=== PATIENT | female | born 1955 | race Caucasian/White ===

== ENCOUNTER 2018-02-08 08:18 | Outpatient (CLI) | payer BC | END 2018-02-08 08:19 | disposition home or self-care (01) | LOC: BICMAMMO 08:18 | PROVIDERS: ATTEND Family Medicine | DX: Z12.31 Encounter for screening mammogram for malignant neoplasm of breast (principal) | CPT/HCPCS: 77063; 77067 ==

== ENCOUNTER 2018-05-24 08:39 | Outpatient (CLI) | payer BC ==
--- NOTE | 2018-05-24 11:11 | MRI ---
MRI LEFT KNEE: 05/24/2018 PROVIDED CLINICAL HISTORY: Left knee pain. FINDINGS: The anterior cruciate ligament, posterior cruciate ligament, medial collateral ligament, and lateral collateral ligamentous complex demonstrate an intact MR appearance, as does the extensor mechanism. There is a displaced bucket-handle tear of the lateral meniscus, with displacement of meniscal tissue into the intercondylar region of the knee. The medial meniscus demonstrates no definite evidence fo r tear. There are conspicuous foci of full-thickness articular cartilage loss involving both medial and later al femorotibial joints. Articular cartilage thinning and articular cartilage irregularity involves t he patellar articular cartilage. Numerous intraarticular bodies are present, the largest of which is located within the lateral aspect of the suprapatellar bursa, measuring about 17-18 mm. There is a moderate knee joint effusion with Molina's cyst formation. There is semimembranosis tendin osis. Intraarticular bodies are noted within the popliteus hiatus. No focal concerning regional marrow or muscular signal abnormality is evident. IMPRESSION: 1. Displaced bucket-handle tear of the lateral meniscus. 2. 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 3. Moderate knee joint effusion with Molina's cyst formation. POS: [facility]
== END 2018-05-24 08:40 | disposition home or self-care (01) ==
LOC: BICMRI 08:39
PROVIDERS: ATTEND Orthopaedic Surgery
DX: S83.242A Other tear of medial meniscus, current injury, left knee, initial encounter (principal); S83.252A Bucket-handle tear of lateral meniscus, current injury, left knee, initial encounter; M25.462 Effusion, left knee; M71.22 Synovial cyst of popliteal space [Baker], left knee

== ENCOUNTER 2018-06-27 16:34 | Outpatient (CLI) | payer BC ==
[2018-06-27 17:11] LABS: #Basophils 0.1 thou/uL (0.0-0.2); #Eosinphils 0.3 thou/uL (0.0-0.7); #Lymphocytes 1.9 thou/uL (1.20-3.40); #Monocytes 0.7 thou/uL (0.11-0.59); #Neutrophils 3.8 thou/uL (1.40-6.50); %Basophils 1.4 % (0.0-1.0); %Eosinophils 4.1 % (0.0-10.0); %Monocytes 10.5 % (0.0-10.0); Hemoglobin 13.3 g/dL (12.0-16.0); Mean Corpuscular HGB CONC 33.2 g/dL (32.0-36.0); Mean Corpuscular Hemoglobin 31.9 pg (27.0-31.0); Mean Corpuscular Volume 96.1 fL (78.0-98.0); Mean Platelet Volume 6.9 fL (7.4-10.4); Platelet Count 314 thou/uL (130-400); RBC Distribution Width 11.3 % (11.5-14.5); Red Blood Cell (RBC) Count 4.16 mill/uL (4.20-5.40); White Blood Cell (WBC) Count 6.8 thou/uL (4.8-10.8)
[2018-06-27 17:27] LABS: Anion Gap 11 mmol/L (10-20); BUN (Urea Nitrogen) 22 mg/dL (9.8-20.1); Calc. Creatinine Clearance 0 mL/min (70-130); Calcium 9.3 mg/dL (7.8-10.44); Carbon Dioxide 28 mmol/L (23-31); Chloride 101 mmol/L (98-107); Estimated GFR-MDRD 67; Glucose 78 mg/dL (80-115); Potassium 3.4 mmol/L (3.5-5.1); Sodium 137 mmol/L (136-145)
--- NOTE | 2018-06-28 14:30 | EKG ---
Test Reason : Blood Pressure : / mmHG Vent. Rate : 054 BPM Atrial Rate : 054 BPM P-R Int : 158 ms QRS Dur : 086 ms QT Int : 422 ms P-R-T Axes : -19 -19 -09 degrees QTc Int : 400 ms Sinus bradycardia Inferior infarct , age undetermined Cannot rule out Anterior infarct , age undetermined Abnormal ECG No previous ECGs available Confirmed by LUCILA NEUMANN, DR. Banda ([id number]) on 06/28/2018 2:29:53 PM Referred By: KIMBERLI Confirmed By:DR. Veronika GAYTAN MD
== END 2018-06-27 16:35 | disposition home or self-care (01) ==
LOC: LABBT 16:34
PROVIDERS: ATTEND Orthopaedic Surgery
DX: Z01.818 Encounter for other preprocedural examination (principal); S83.282A Other tear of lateral meniscus, current injury, left knee, initial encounter
CPT/HCPCS: 80048; 85025; 93005; 93010

== ENCOUNTER 2018-06-29 05:59 | Day surgery (SDC) | payer BC ==
[2018-06-27 16:48] VITALS: BMI 24.7
[2018-06-29] MEDS ORDERED: CEFAZOLIN 2 GM/50 ML BAG ONE (06:23)
[2018-06-29] MEDS ORDERED: PROPOFOL 20 ML ONE (06:24)
[2018-06-29] MEDS ORDERED: Fentanyl 100 MCG/2 ML VIAL ONE ×2 (06:54→08:40)
[2018-06-29] MEDS ORDERED: Bupivacaine HCl 0.5%/Epinephrine 1:200,000/PF 30 ml Vial ONE (10:58)
[2018-06-29] MEDS ORDERED: Lidocaine 2% w/Epinephrine 1:200K 20 ML VIAL ONE (10:58)
[2018-06-29] MEDS ORDERED: Lidocaine 1% PF 5 ML VIAL ONE (15:59)
[2018-06-29] MEDS ORDERED: PROPOFOL 200 MG/20 ML VIAL ONE (15:59)
[2018-06-29] MEDS ORDERED: ePHEDrine/0.9% NaCl/PF SYRINGE 50 mg/10 ml ONE (15:59)
[2018-06-29] MEDS ORDERED: Ketorolac Tromethamine 30 MG/ML VIAL ONE (15:59)
[2018-06-29] MEDS ORDERED: Dexamethasone 20 MG/5 ML VIAL ONE (15:59)
[2018-06-29] MEDS ORDERED: Ondansetron PF 4 MG/2 ML Vial ONE (15:59)
--- NOTE | 2018-07-02 08:23 | OP ---
DATE OF PROCEDURE: 06/29/2018 PREOPERATIVE DIAGNOSIS: Bucket handle lateral meniscus tear. POSTOPERATIVE DIAGNOSES: Bucket handle lateral meniscus tear, and 5 large loose bodies, which were removed. The loose body removal took over 20 minutes to get all 5 out and was actually more involved part of the procedure than the lateral meniscectomy. ANESTHESIA: General. BLOOD LOSS: Minimal. SPECIMEN: None. DRAINS: None. COMPLICATIONS: None. FINDINGS OF SURGERY: Five loose bodies, large bucket handle lateral meniscus tear, grade 4 chondromalacia and a kissing lesion on the posterolateral tibia and femur. medial portal. Patellofemoral joint had some chondromalacia of the patellofemoral . Medial compartment had grade 2 to 3 chondromalacia. Medial meniscus was intact. I immediately noticed loose bodies floating in the intercondylar notch. These were removed easily. Some of the other loose bodies were discovered by checking both gutters and the suprapatellar pouch. Some of these loose bodies measured nearly a centimeter in diameter, others more or like about 5 mm. After the loose bodies were removed, I addressed the lateral meniscus tear. I detached the lateral meniscus anteriorly and posteriorly and removed as one large fragment and smoothed the edges. After removing this large fragmented, I noted that she had exposed bone on the tibia and the femur. This part had been more of a chronic type lateral meniscus tear. The knee was then irrigated and looked for additional loose bodies, did not discover any. The knee was drained, sterile dressings applied. Job ID: [id number]
== END 2018-06-29 11:02 | disposition home or self-care (01) ==
LOC: SDC 05:59
PROVIDERS: ATTEND Orthopaedic Surgery
PROC: 0SCD4ZZ Extirpation of Matter from Left Knee Joint, Percutaneous Endoscopic Approach (ICD-10-PCS; principal; 2018-06-29)
PROC: 0SBD4ZZ Excision of Left Knee Joint, Percutaneous Endoscopic Approach (ICD-10-PCS; principal; 2018-06-29)
DX: S83.252A Bucket-handle tear of lateral meniscus, current injury, left knee, initial encounter (principal); M94.262 Chondromalacia, left knee; E03.9 Hypothyroidism, unspecified; M19.90 Unspecified osteoarthritis, unspecified site; J30.2 Other seasonal allergic rhinitis
CPT/HCPCS: 96374; G8978-GP-CI; G8979-GP-CI; G8980-GP-CI; J0670; J1100; J1885; J2001; J2405; J2704; J3010

== ENCOUNTER 2019-02-19 08:08 | Outpatient (CLI) | payer BC ==
--- NOTE | 2019-02-19 09:29 | MMO ---
Bilateral MAMMO Bilat Screen [facility]. CLINICAL HISTORY: Patient is 63 years old and is seen for screening. The patient has no family history of breast cancer. The patient has no personal history of cancer. VIEWS: The views performed were: bilateral craniocaudal with tomosynthesis and bilateral mediolateral oblique with tomosynthesis. FILMS COMPARED: The present examination has been compared to a prior imaging study performed at [facility] on 02/08/2018. MAMMOGRAM FINDINGS: There are scattered fibroglandular densities. There are stable benign appearing calcifications seen in both breasts. There are no suspicious masses, suspicious calcifications, or new areas of architectural distortion. IMPRESSION: THERE IS NO MAMMOGRAPHIC EVIDENCE OF MALIGNANCY. A ROUTINE FOLLOW-UP MAMMOGRAM IN 1 YEAR IS RECOMMENDED. THE RESULTS OF THIS EXAM WERE SENT TO THE PATIENT. ACR BI-RADS Category 2 - Benign finding MAMMOGRAPHY NOTE: 1. A negative mammogram report should not delay a biopsy if a dominant of clinically suspicious mass is present. 2. Approximately 10% to 15% of breast cancers are not detected by mammography. 3. Adenosis and dense breasts may obscure an underlying neoplasm. Reported by: RACHEL ROY MD Electonically Signed: [id number]
== END 2019-02-19 08:09 | disposition home or self-care (01) ==
LOC: BICMAMMO 08:08
PROVIDERS: ATTEND Family Medicine
DX: Z12.31 Encounter for screening mammogram for malignant neoplasm of breast (principal)
CPT/HCPCS: 77063; 77067

== ENCOUNTER 2021-08-19 15:08 | Outpatient (CLI) | payer MEDICARE ==
[2021-08-19 16:41] LABS: #Basophils 0.1 10x3/uL (0.0-0.2); #Eosinphils 0.1 10x3/uL (0.0-0.5); #Monocytes 0.7 10x3/uL (0.0-1.1); #Neutrophils 4.3 10x3/uL (1.5-8.4); %Basophils 0.9 % (0.0-2.0); %Eosinophils 1.5 % (0.0-6.0); %Monocytes 9.9 % (0.0-10.0); %Neutrophils 63.3 % (40.0-75.0); Hemoglobin 12.5 g/dL (12.0-15.5); Mean Corpuscular HGB CONC 32.6 g/dL (32.0-36.0); Mean Corpuscular Hemoglobin 31.1 pg (27.0-33.0); Mean Corpuscular Volume 95.5 fl (81.6-98.3); Mean Platelet Volume 9.5 fl (7.4-10.4); Platelet Count 295 10x3/uL (150-450); Red Blood Cell (RBC) Count 4.02 10x6/uL (3.90-5.03); White Blood Cell (WBC) Count 6.7 10x3/uL (3.5-10.5)
[2021-08-19 17:21] LABS: INR-International Normal Ratio 0.9; Prothrombin Time 10.1 sec (9.5-12.1)
[2021-08-19 17:23] LABS: Anion Gap 13 mmol/L (10-20); BUN (Urea Nitrogen) 16 mg/dL (9.8-20.1); Calc. Creatinine Clearance 0 mL/min (70-130); Calcium 9.1 mg/dL (7.8-10.44); Carbon Dioxide 28 mmol/L (23-31); Chloride 94 mmol/L (98-107); Glucose 76 mg/dL (80-115); Potassium 3.9 mmol/L (3.5-5.1); Sodium 131 mmol/L (136-145)
[2021-08-20 19:32] LABS: SARS-CoV-2 PCR by NAA Not Detected (NotDetected)
== END 2021-08-19 15:09 | disposition home or self-care (01) ==
LOC: LABBT 15:08
PROVIDERS: ATTEND Orthopaedic Surgery
DX: Z01.818 Encounter for other preprocedural examination (principal); M17.11 Unilateral primary osteoarthritis, right knee; Z20.822 Contact with and (suspected) exposure to COVID-19
CPT/HCPCS: 80048; 85025; 85610; 87081; U0003; U0005; 93005; 93010

== ENCOUNTER 2021-08-24 06:38 | Observation (INO) | payer MEDICARE, OTHER ==
[2021-08-13 15:11] VITALS: BMI 25.2
[2021-08-24] MEDS ORDERED: Fentanyl 100 MCG/2 ML VIAL ONE ×5 (07:40→11:20)
[2021-08-24] MEDS ORDERED: Midazolam HCl 2 mg/2 ml Vial ONE (07:40)
[2021-08-24] MEDS ORDERED: Sodium Chloride 0.9% 100 ML ONE (07:45)
[2021-08-24] MEDS ORDERED: Vancomycin 1 GM/200 ML BAG ONE (07:45)
[2021-08-24] MEDS ORDERED: Tranexamic Acid 1,000 MG/10 ML VIAL ONE (07:45)
[2021-08-24] MEDS ORDERED: Fentanyl 100 MCG/2 ML VIAL SLOW IVP PRN (08:57)
[2021-08-24] MEDS ORDERED: Zolpidem Tartrate 5 MG TAB PO PRN ×2 (08:57→09:15)
[2021-08-24] MEDS ORDERED: Acetaminophen 325 MG TAB PO PRN (08:57)
[2021-08-24] MEDS ORDERED: traMADol HCl 50 MG TAB PO PRN ×4 (08:57→11:00)
[2021-08-24] MEDS ORDERED: Promethazine HCl 25 MG/ML VIAL IM PRN ×2 (08:57→09:15)
[2021-08-24] MEDS ORDERED: Ondansetron PF 4 MG/2 ML Vial IVP PRN ×2 (08:57→09:15)
[2021-08-24] MEDS ORDERED: diphenhydrAMINE 25 MG CAP PO PRN (08:57)
[2021-08-24] MEDS ORDERED: Acetaminophen 500 MG TAB PO PRN (08:58)
[2021-08-24] MEDS ORDERED: Fentanyl 100 MCG/2 ML VIAL IV PRN (09:02)
[2021-08-24] MEDS ORDERED: ceFAZolin 2 GM/Dextrose 50 ML IVPB ONE (09:02)
[2021-08-24] MEDS ORDERED: Bupivacaine PF 0.5% 30 ML VIAL ONE (09:02)
[2021-08-24] MEDS ORDERED: PROPOFOL 200 MG/20 ML VIAL ONE (09:10)
[2021-08-24] MEDS ORDERED: Ondansetron PF 4 MG/2 ML Vial ONE (09:10)
[2021-08-24] MEDS ORDERED: Bupivacaine HCl 0.5%/Epinephrine 1:200,000/PF 30 ml Vial ONE (09:10)
[2021-08-24] MEDS ORDERED: Dexamethasone 20 MG/5 ML VIAL ONE (09:10)
[2021-08-24] MEDS ORDERED: Ropivacaine 0.2% 550 ML 550 ML NERVE BLCK SCH (09:15)
[2021-08-24] MEDS ORDERED: HYDROcodone/Acetaminophen 10/325 mg Tablet PO PRN ×2 (11:00)
[2021-08-24] MEDS: Calcium Carbonate 500 MG TAB PO SCH (12:41)
[2021-08-24] MEDS: Cholecalciferol 1,000 UNITS (25 MCG) TAB PO SCH (12:41)
[2021-08-24] MEDS: Aspirin 81 mg Enteric Coated Tablet PO SCH ×2 (12:41→20:45)
[2021-08-24] MEDS: Ascorbic Acid 500 mg Chewable Tablet PO SCH (12:41)
[2021-08-24] MEDS: Ketorolac Tromethamine 30 MG/ML VIAL IM SCH ×2 (13:07→17:27)
[2021-08-24] MEDS: Sodium Chloride 0.9% 1,000 ML IV SCH ×2 (13:08→17:35)
[2021-08-24] MEDS ORDERED: Ketorolac Tromethamine 30 MG/ML VIAL IM SCH (14:00)
[2021-08-24] MEDS: ceFAZolin 2 GM/Dextrose 50 ML 2 GM in Premix Bag 1 BAG IVPB SCH (20:45)
[2021-08-24] MEDS: Cyclobenzaprine 10 MG TAB PO PRN (20:46)
[2021-08-25] MEDS: Ketorolac Tromethamine 30 MG/ML VIAL IM SCH ×4 (01:15→17:56)
[2021-08-25] MEDS: ceFAZolin 2 GM/Dextrose 50 ML 2 GM in Premix Bag 1 BAG IVPB SCH (03:36)
[2021-08-25] MEDS: Sodium Chloride 0.9% 1,000 ML IV SCH ×2 (03:53→17:34)
[2021-08-25 06:17] LABS: Hemoglobin 10.6 g/dL (12.0-16.0); Mean Corpuscular HGB CONC 34.1 g/dL (32.0-36.0); Mean Corpuscular Volume 96.6 fL (78.0-98.0); Mean Platelet Volume 6.9 fL (7.4-10.4); Platelet Count 218 thou/uL (130-400); RBC Distribution Width 11.4 % (11.5-14.5); Red Blood Cell (RBC) Count 3.22 mill/uL (4.20-5.40); White Blood Cell (WBC) Count 9.3 thou/uL (4.8-10.8)
[2021-08-25] MEDS: Cholecalciferol 1,000 UNITS (25 MCG) TAB PO SCH (08:35)
[2021-08-25] MEDS: Ferrous Gluconate 324 MG TAB PO SCH ×2 (08:35→17:56)
[2021-08-25] MEDS: Senokot S 8.6-50 MG TAB PO SCH ×2 (08:36→21:15)
[2021-08-25] MEDS: Multivitamin W/ Minerals 1 TAB PO SCH (08:36)
[2021-08-25] MEDS: Ascorbic Acid 500 mg Chewable Tablet PO SCH (08:36)
[2021-08-25] MEDS: Calcium Carbonate 500 MG TAB PO SCH (08:36)
[2021-08-25] MEDS: Aspirin 81 mg Enteric Coated Tablet PO SCH ×2 (08:36→21:15)
[2021-08-25] MEDS ORDERED: Calcium Carbonate 500 MG ChewTAB PO PRN (10:19)
[2021-08-25] MEDS ORDERED: Ondansetron ODT 4 MG TAB PO PRN (10:20)
[2021-08-25] MEDS: Cyclobenzaprine 10 MG TAB PO PRN ×2 (12:05→21:15)
[2021-08-26] MEDS: Ketorolac Tromethamine 30 MG/ML VIAL IM SCH ×2 (00:18→05:59)
[2021-08-26] MEDS: Sodium Chloride 0.9% 1,000 ML IV SCH (03:06)
[2021-08-26] MEDS: Calcium Carbonate 500 MG TAB PO SCH (08:03)
[2021-08-26] MEDS: Cholecalciferol 1,000 UNITS (25 MCG) TAB PO SCH (08:03)
[2021-08-26] MEDS: Aspirin 81 mg Enteric Coated Tablet PO SCH (08:05)
[2021-08-26] MEDS: Ferrous Gluconate 324 MG TAB PO SCH (08:05)
[2021-08-26] MEDS: Multivitamin W/ Minerals 1 TAB PO SCH (08:05)
[2021-08-26] MEDS: Senokot S 8.6-50 MG TAB PO SCH (08:05)
[2021-08-26] MEDS: Ascorbic Acid 500 mg Chewable Tablet PO SCH (08:05)
[2021-08-26 08:26] VITALS: BP 124/80; TEMP 98
== END 2021-08-26 11:45 | disposition home or self-care (01) ==
LOC: SDC 06:38 → SURG A 08:57 → SDC 15:38 → SURG A 15:38
PROVIDERS: ADMIT Orthopaedic Surgery; ATTEND Orthopaedic Surgery
PROC: 0SRC0J9 Replacement of Right Knee Joint with Synthetic Substitute, Cemented, Open Approach (ICD-10-PCS; principal; 2021-08-24)
PROC: 8E0YXBZ Computer Assisted Procedure of Lower Extremity (ICD-10-PCS; 2021-08-24)
PROC: 3E0T3BZ Introduction of Anesthetic Agent into Peripheral Nerves and Plexi, Percutaneous Approach (ICD-10-PCS; 2021-08-24)
DX: M17.11 Unilateral primary osteoarthritis, right knee (principal); M71.21 Synovial cyst of popliteal space [Baker], right knee; M21.161 Varus deformity, not elsewhere classified, right knee; E03.9 Hypothyroidism, unspecified; Z88.5 Allergy status to narcotic agent; Z88.6 Allergy status to analgesic agent
CPT/HCPCS: 20985; 27447; 64448; 73560; 85027; 97110 ×2; 97116 ×2; 97139 ×4; 97530 ×3; A4306; C1713; C1776; 36415; 96374; 96375; 96376; G0378; J0690; J1100; J1885; J2250; J2405; J2704; J2795; J3010; J3370; J3490; J7050; S0020